=== PATIENT | male | born 1975 | race Caucasian/White ===

== ENCOUNTER 2016-11-09 21:49 | Emergency (ER) | payer OTHER, BC ==
[2016-11-09 22:13] VITALS: BP 149/81
--- NOTE | 2016-11-09 22:18 | UC ---
Head Injury HPI - HPI Summary HPI Summary: 40 yo male was in work parking lot when he slipped on ice fell striking back of head No LOC no neck pain Mild frontal YOUNG 2-3/10 nausea trouble focusing mild dizziness - History Of Current Complaint Chief Complaint: UCHeadInjury Stated Complaint: FELL @ WORK HIT HEAD Time Seen by Provider: 11/09/16 22:02 Hx Obtained From: Patient Onset/Duration: Sudden Onset, Lasting Hours Severity Currently: Mild Severity Initially: Moderate Pain Intensity: 3 Pain Scale Used: 0-10 Numeric Character: Dull Aggravating Factor(s): Nothing Alleviating Factor(s): Nothing Associated Signs And Symptoms: Positive: Nausea, Other - mild disequilibrium. Negative: Negative, LOC (Time In Secs./Mins/Hrs), LOC Duration Unknown, Confusion, Memory Loss, Seizure, Epistaxis, Dental Malocclusion, Neck Pain - Allergies/Home Medications Allergies/Adverse Reactions: Allergies Allergy/AdvReac Type Severity Reaction Status Date / Time No Known Allergies Allergy Verified 11/09/16 22:00 Home Medications: Home Medications Cholecalciferol TAB* [Vitamin D TAB*] 1,000 unit PO DAILY 11/09/16 [History Confirmed 11/09/16] Lisinopril TAB* [Prinivil TAB*] 10 mg PO DAILY 11/09/16 [History Confirmed 11/09] Omeprazole CAP* [Prilosec CAP* 20 MG] 20 mg PO DAILY 11/09/16 [History Confirmed 11/09/16] PMH/Surg Hx/FS Hx/Imm Hx Previously Healthy: Yes Cardiovascular History Of: Reports: Hypertension - Surgical History Surgical History: None - Family History Known Family History: Positive: Hypertension - Social History Alcohol Use: Rare Substance Use Type: None Smoking Status (MU): Never Smoked Tobacco Review of Systems Constitutional: Negative Skin: Negative Eyes: Negative ENT: Negative Respiratory: Negative Cardiovascular: Negative Gastrointestinal: Negative Genitourinary: Negative Motor: Negative Neurovascular: Negative Musculoskeletal: Negative Neurological: Headache Psychological: Negative All Other Systems Reviewed And Are Negative: Yes Physical Exam Triage Information Reviewed: Yes Appearance: Well-Appearing, No Pain Distress, Well-Nourished Vital Signs: Initial Vital Signs Temp 98.0 F 11/09/16 21:55 Pulse 78 11/09/16 21:55 Resp 18 01/02/17 21:55 BP 149/81 11/09/16 21:55 Pulse Ox 98 11/09/16 21:55 Eye Exam: Normal Eyes: Positive: Conjunctiva Clear, Other: - eomi/perrl ENT: Positive: Hearing grossly normal. Negative: Nasal congestion, Nasal drainage, Tonsillar exudate, Trismus, Muffled/hoarse voice Dental Exam: Normal Dental: Positive: Other: - TMJ normal/no jaw malocclusion Neck: Positive: Supple, Nontender, No Lymphadenopathy Respiratory: Positive: Lungs clear, Normal breath sounds, No respiratory distress, No accessory muscle use Cardiovascular: Positive: RRR, No Murmur Musculoskeletal: Positive: Strength Intact, ROM Intact Neurological Exam: Normal Neurological: Positive: Alert, Muscle Tone Normal, Other: - non focal neurologic exam/alert/normal gait Psychological Exam: Normal Psychological: Positive: Normal Response To Family Skin Exam: Normal Skin: Negative: rashes Head Injury Course/Dx - Differential Dx/Diagnosis Provider Diagnoses: concussion Discharge - Discharge Plan Condition: Stable Disposition: HOME Patient Education Materials: Concussion (ED) Forms: *Work Release Referrals: Loc Tuttle MD [Primary Care Provider] - Additional Instructions: mental and physical rest
== END 2016-11-09 22:19 | disposition home or self-care (01) ==
LOC: UCCORT 21:49
DX: S06.0X9A Concussion with loss of consciousness of unspecified duration, initial encounter (principal); W00.0XXA Fall on same level due to ice and snow, initial encounter; Y99.0 Civilian activity done for income or pay; R11.0 Nausea; R42 Dizziness and giddiness; I10 Essential (primary) hypertension
CPT/HCPCS: 99211; G0463

== ENCOUNTER 2016-11-14 15:37 | Emergency (ER) | payer BC, OTHER ==
[2016-11-14 15:49] VITALS: BP 125/81
--- NOTE | 2016-11-14 16:17 | UC ---
Head Injury HPI - HPI Summary HPI Summary: complaint of falling at work and hitting the back of his head after slipping on the ice- no LOC seen in urgent 11/09/16 for evaluation since incident had a intermittent headache for 2 days -was taking tylenol for pain with relief denies headache since 11/11/16 denies dizziness, memory loss, nausea and vomiting, vision disturbances denies tinnitus, fatigue, needs a note to return to work - History Of Current Complaint Chief Complaint: UCHeadInjury Stated Complaint: CONCUSSION RECHECK FOR WORK NOTE Time Seen by Provider: 11/14/16 16:02 Hx Obtained From: Patient - Allergies/Home Medications Allergies/Adverse Reactions: Allergies Allergy/AdvReac Type Severity Reaction Status Date / Time No Known Allergies Allergy Verified 11/14/16 15:50 PMH/Surg Hx/FS Hx/Imm Hx Previously Healthy: No - recent head injury Cardiovascular History Of: Reports: Hypertension - Surgical History Surgical History: None - Family History Known Family History: Positive: Hypertension Negative: Cardiac Disease, Diabetes - Social History Occupation: Employed Full-time Alcohol Use: Rare Substance Use Type: None Smoking Status (MU): Never Smoked Tobacco Review of Systems Constitutional: Negative Skin: Negative Eyes: Negative ENT: Negative Respiratory: Negative Cardiovascular: Negative Gastrointestinal: Negative Genitourinary: Negative Motor: Negative Neurovascular: Negative Musculoskeletal: Negative Neurological: Negative Psychological: Negative All Other Systems Reviewed And Are Negative: Yes Physical Exam Triage Information Reviewed: Yes Appearance: No Pain Distress, Well-Nourished, Obese Vital Signs: Initial Vital Signs Temp 97.2 F 11/14/16 15:47 Pulse 77 11/14/16 15:47 Resp 14 11/14/16 15:47 BP 125/81 11/14/16 15:47 Pulse Ox 95 11/14/16 15:47 Vital Signs Reviewed: Yes Eyes: Positive: Conjunctiva Clear ENT: Positive: Pharynx normal, TMs normal. Negative: Nasal congestion Neck: Positive: Supple, No Lymphadenopathy Respiratory: Positive: Lungs clear, Normal breath sounds, No respiratory distress Cardiovascular: Positive: RRR, No Murmur, Pulses Normal Abdomen Description: Positive: Nontender, Soft Bowel Sounds: Positive: Present Musculoskeletal: Positive: No Edema Neurological: Positive: Alert, Other: - PERRLA, EOMI intact, negative Rhomberg Psychological Exam: Normal Skin Exam: Normal Head Injury Course/Dx - Differential Dx/Diagnosis Differential Diagnosis/HQI/PQRI: Other - head injury Provider Diagnoses: head injury -resolved Discharge - Discharge Plan Condition: Stable Disposition: HOME Patient Education Materials: Head Injury (ED) Forms: *Work Release Referrals: Loc Tuttle MD [Primary Care Provider] - Additional Instructions: Your symptoms have resolved from head injury You may return to work wihtour restrictions Please review your discharge instructions. If your symptoms do not improve please call your primary care provider or return to urgent care
== END 2016-11-14 16:30 | disposition home or self-care (01) ==
LOC: UCCORT 15:37
DX: Z09 Encounter for follow-up examination after completed treatment for conditions other than malignant neoplasm (principal); S09.90XD Unspecified injury of head, subsequent encounter; W00.0XXD Fall on same level due to ice and snow, subsequent encounter; Y92.9 Unspecified place or not applicable; I10 Essential (primary) hypertension
CPT/HCPCS: 99211; G0463

== ENCOUNTER 2017-04-10 16:45 | Emergency (ER) | payer BC ==
[2017-04-10 17:51] VITALS: BP 130/84
--- NOTE | 2017-04-10 18:40 | UC ---
Skin Complaint HPI - HPI Summary HPI Summary: "Right lower extremity redness, pain, & swelling since last night. Associated w / fever & nausea." sx started yesterday as 5 small dots on right unique-medial mcghee. put HC cream on it initially w/o relief. He has h/o cellulitis in legs frequently d/t edema in legs. Denies CP/sob. no personal or FHx DVTs or PEs. He is always treated with keflex 500mgs tid x 10 days. - History of Current Complaint Chief Complaint: UCSkin Time Seen by Provider: 04/10/17 18:33 Stated Complaint: RIGHT LEG COMPLAINT - Allergy/Home Medications Allergies/Adverse Reactions: Allergies Allergy/AdvReac Type Severity Reaction Status Date / Time No Known Allergies Allergy Verified 04/10/17 17:45 Home Medications: Home Medications Ibuprofen TAB* [Motrin TAB* 800 MG] 800 mg PO Q8H PRN 04/10/17 [History Confirmed 04/10/17] Review of Systems Constitutional: Fever, Chills Skin: Negative Eyes: Negative ENT: Negative Respiratory: Negative Cardiovascular: Negative Gastrointestinal: Other - mild nausea. Genitourinary: Negative Motor: Negative Neurovascular: Negative Musculoskeletal: Negative Neurological: Negative Psychological: Negative All Other Systems Reviewed And Are Negative: Yes PMH/Surg Hx/FS Hx/Imm Hx Previously Healthy: Yes Cardiovascular History: Hypertension - Surgical History Surgical History: None - Family History Known Family History: Positive: Hypertension Negative: Cardiac Disease, Diabetes, Blood Disorder - no DVTs or PEs. - Social History Alcohol Use: Rare Substance Use Type: None Smoking Status (MU): Never Smoked Tobacco Physical Exam Triage Information Reviewed: Yes Appearance: Well-Appearing, No Pain Distress, Well-Nourished, Other: - feels cold in a warm exam room. Vital Signs: Initial Vital Signs Temp 101.4 F 04/10/17 17:47 Pulse 99 04/10/17 17:47 Resp 16 04/10/17 17:47 BP 130/84 04/10/17 17:47 Pulse Ox 100 04/10/17 17:47 Vital Signs Reviewed: Yes Eye Exam: Normal ENT Exam: Normal Dental Exam: Normal Neck exam: Normal Neck: Positive: Supple, Nontender, No Lymphadenopathy Respiratory Exam: Normal Respiratory: Positive: Lungs clear, Normal breath sounds, No respiratory distress, No accessory muscle use Cardiovascular Exam: Normal Cardiovascular: Positive: RRR, No Murmur, Pulses Normal Abdominal Exam: Normal Abdomen Description: Positive: Nontender, Soft Musculoskeletal Exam: Normal Neurological Exam: Normal Psychological Exam: Normal Skin: Positive: Other - right lower leg with anterior, medial and posterior erythema, warm to touch and tender. a few small darker red dots unique-lateral. +1 edema b/l legs. Course/Dx - Course Course Of Treatment: rocephin 1 gm IM x 1 now. start keflex 500mgs tid in 24 hrs. Declines ER for US to r/o DVT. Has h/o leg cellulitis just like this d/t leg edema. Denies h/o or FHx PE/DVTs. Agrees to go to ER if sx worsen or not better in 24 hrs. - Differential Diagnoses - Skin Complaint Differential Diagnoses: Cellulitis, Contact Dermatitis, Other - DVT - Diagnoses Provider Diagnoses: Rt lower extremity cellulitis. Discharge - Discharge Plan Condition: Stable Disposition: HOME Prescriptions: Cephalexin CAP* [Keflex CAP*] 500 mg PO TID #30 cap Referrals: Loc Tuttle MD [Primary Care Provider] - 2 Days Additional Instructions: Make sure to take a probiotic daily while on the antibiotic to prevent c diff. Start the keflex in 24 hrs. You should go to ER if symptoms worsen.
[2017-04-10] MEDS ORDERED: cefTRIAXone VIAL(*) 1,000 MG VIAL IM ONE (18:45)
[2017-04-10] MEDS ORDERED: Lidocaine 1% INJ* 10 MG/ML 30 ML SDV INJ ONE (19:05)
[2017-04-10] MEDS ORDERED: Lidocaine 1%* 5 ML VIAL INJ ONE (19:08)
== END 2017-04-10 19:43 | disposition home or self-care (01) ==
LOC: UCCORT 16:45
DX: L03.115 Cellulitis of right lower limb (principal); R50.9 Fever, unspecified; R11.0 Nausea; I10 Essential (primary) hypertension
CPT/HCPCS: 96372; 99212; G0463; J0696; J2001

== ENCOUNTER 2017-10-12 06:08 | Inpatient (IN) | payer BC ==
[~2017-10-12 06:08] MED LIST: Buffered Lidocaine 0.9% SYRIN* 5 ML/SYR SYRINGE INTRADERM ONE; Dexamethasone IV* 4 MG/ML 1 ML (4 MG) IV SLOW PU ONE; Famotidine IV* 10 MG/ML 2 ML (20 mg) IV ONE; Scopolamine 1.5 mg* PATCH TRANSDERM ONE
[2017-10-12] MEDS ORDERED: Heparin VIAL(*) 5000 UNITS/ML VIAL (FIVE THOUSAND) ONE (06:43)
[2017-10-12] MEDS ORDERED: Dexamethasone IV* 4 MG/ML 1 ML (4 MG) ONE (06:43)
[2017-10-12] MEDS ORDERED: Famotidine IV* 10 MG/ML 2 ML (20 mg) ONE (06:43)
[2017-10-12] MEDS ORDERED: Clindamycin 900 MG IVPREMIX(* 900 MG/50 ML SDV IV ONE (06:44)
[2017-10-12] MEDS ORDERED: ceFAZolin 2 GM PREMIX (*) 2 GM/50 ML BAG IVPB ONE (06:44)
[2017-10-12] MEDS ORDERED: Buffered Lidocaine 0.9% SYRIN* 5 ML/SYR SYRINGE ONE (06:44)
[2017-10-12] MEDS ORDERED: Scopolamine 1.5 mg* PATCH ONE (06:44)
[2017-10-12] MEDS ORDERED: Methylene Blue 0.5 %* 50 MG/10 ML AMP IV ONE (06:53)
[2017-10-12] MEDS ORDERED: Bupivacaine 0.5% SDV PF* 30 ML VIAL ONE (06:53)
[2017-10-12] MEDS ORDERED: ceFAZolin 1 GM ADVAN(*) 1 GM ADDV.VIAL IVPB ONE (07:18)
[2017-10-12] MEDS ORDERED: Lidocaine 2% PF * 5 ML VIAL ONE (07:36)
[2017-10-12] MEDS ORDERED: Rocuronium* 10 MG/ML VIAL ONE (07:36)
[2017-10-12] MEDS ORDERED: Propofol* 10 MG/ML 20 ML BTL IV PUSH ONE (07:36)
[2017-10-12] MEDS ORDERED: fentaNYL* 50 MCG/ML 5 ML VIAL (250 MCG VIAL) ONE (07:37)
[2017-10-12] MEDS ORDERED: Midazolam* 1 MG/ML 2 ML VIAL (2 MG) ONE (07:37)
[2017-10-12] MEDS ORDERED: Ketorolac INJ* 30 MG/ML 1 ML VIAL ONE (08:27)
[2017-10-12] MEDS ORDERED: fentaNYL* 50 MCG/ML 2 ML VIAL (100 MCG VIAL) ONE ×4 (08:43→11:37)
[2017-10-12] MEDS ORDERED: PROCHLORPERAZINE INJ 5 MG/ML 2 ML VIAL IV PRN (08:45)
[2017-10-12] MEDS ORDERED: Acetaminophen IV 1GM/100ML * 1,000 MG/100 ML VIAL IVPB ONE (08:45)
[2017-10-12] MEDS ORDERED: Labetalol IV* 5 MG/ML 20 ML VIAL ONE (08:52)
[2017-10-12] MEDS ORDERED: Ondansetron INJ* 2 MG/ML VIAL ONE (09:59)
[2017-10-12] MEDS ORDERED: Acetaminophen IV 1GM/100ML * 100 ML ONE (10:05)
--- NOTE | 2017-10-12 10:16 | PN ---
Progress Note - Progress Note Date of Service: 10/12/17 Note: Brief Operative Note: Pre and Postop Dx: morbid obesity Procedure: Laparoscopic Doni En Y gastric bypass Anesthesia: GET Surgeon: Isael Asst: CHERYL Lechuga Fluids: 1800 ml RL EBL: 20 ml Drains: none Specimen: none Findings: dictated
[2017-10-12] MEDS ORDERED: HYDROcodone/ACET. 7.5/325 LIQ* 15 ML UDC PO PRN (10:32)
[2017-10-12] MEDS ORDERED: Ondansetron INJ* 2 MG/ML VIAL IV PRN (10:32)
[2017-10-12] MEDS ORDERED: Acetaminophen ADULT LIQ* 650 MG/20.3 ML UDC PO PRN (10:32)
[2017-10-12] MEDS ORDERED: diPHENhydraMINE IV* 50 MG/ML 1 ml VIAL (BENADRYL) SLOW PUSH PRN (10:32)
[2017-10-12] MEDS: fentaNYL* 50 MCG/ML 2 ML VIAL (100 MCG VIAL) IV PRN ×5 (10:57→11:41)
[2017-10-12] MEDS ORDERED: HYDROmorphone INJ* 1 MG/ML CARPUJECT SYRINGE ONE ×2 (11:21→19:25)
[2017-10-12] MEDS ORDERED: Morphine INJ* 10 MG/ML 1 ML CARPUJECT ONE (11:37)
[2017-10-12] MEDS: Morphine INJ* 2 MG/ML 1 ML CARPUJECT IV PRN ×2 (11:39→11:48)
[2017-10-12] MEDS: Heparin VIAL(*) 5000 UNITS/ML VIAL (FIVE THOUSAND) SUBCUT SCH ×2 (14:46→22:21)
[2017-10-12] MEDS: Ketorolac INJ* 30 MG/ML 1 ML VIAL IV PRN (17:50)
[2017-10-12] MEDS ORDERED: HYDROmorphone INJ* 2 MG/ML CARPUJECT SYRINGE IV PRN ×2 (19:37→22:33)
[2017-10-12] MEDS: Famotidine IV* 10 MG/ML 2 ML (20 mg) IV SLOW PU SCH (22:14)
--- NOTE | 2017-10-13 03:57 | OP ---
CC: Loc Tuttle MD * DATE OF OPERATION: 10/12/17 - ROOM #351 DATE OF : 71 SURGEON: Celso Kirkland MD UNIT AID: CHERYL Guzman ANESTHESIOLOGIST: Dr. Danilo Crain. ANESTHESIA: General endotracheal. PRE-OP DIAGNOSIS: Morbid obesity. POST-OP DIAGNOSIS: Morbid obesity. OPERATIVE PROCEDURE: Laparoscopic Angelica-en-Y gastric bypass. ESTIMATED BLOOD LOSS: 20 mL. IV FLUIDS: 1.8 L crystalloid. SPECIMENS: None. DRAINS: None. COMPLICATIONS: None. COUNTS: Needle and sponge counts correct. DESCRIPTION OF PROCEDURE: The patient was brought to the operating room and placed on the table supine. Sequential compression devices were placed on both lower extremities. General anesthesia was administered. The patient had a Eaton catheter placed. He was positioned and padded approximately. He was prepped and draped in the usual sterile fashion. He received appropriate antibiotics and a time-out was performed. Local anesthetic was infiltrated into the skin and soft tissue prior to making each incision. Entry into the abdomen was through a left upper quadrant incision accommodating a 12-mm optical trocar. After accessing the peritoneal cavity, carbon dioxide was insufflated to a pressure of 15 mmHg. Under direct visualization, 12 mm bladeless trocars were placed in the supraumbilical midline and in the right upper quadrant. 5-mm bladeless trocars were placed in the right upper quadrant medially and left upper quadrant laterally. A Chuckie liver retractor was placed percutaneously in the subxiphoid position and used to elevate the left lobe of the liver. Gastric anatomy appeared normal. Periosteally, gastric cardia was mobilized away from the left kailee of the diaphragm using a blunt technique. Then perigastric dissection was undertaken on the lesser curvature crossing vein. A transverse firing was undertaken with the EndoGIA stapler with a kenny cartridge and then additional firings were undertaken heading towards the angle of His, also with kenny MANGO stapler cartridges. The gastric pouch was thus created, size approximately 15 to 30 mL volume. Staple lines were noted to be intact and hemostatic. Next, the omentum was retracted superiorly and divided down the midline with a LigaSure. The transverse colon was retracted superiorly and the Ligament of Treitz was identified. The jejunum was measured out 40 to 50 cm. The loop was then tacked to the left lateral staple line on the gastric pouch with interrupted 2-0 silks. The gastrojejunal anastomosis was then performed antecolic antigastric with a linear 30 mm EndoGIA stapler in a [id number] fashion. The common enterotomy was run close with 3-0 PDS. The loop was then divided to the left of the anastomosis with an EndoGIA stapler with a kenny cartridge. The gastrojejunal anastomosis thus completed was tested with methylene blue dye solution instilled through the orogastric tube. The testing revealed there was no leak. Next, the angelica limb was measured out 75 cm and at this point, a functional end-to-side jejunojejunostomy was created with the EndoGIA stapler with a 60 mm kenny cartridge. The common enterotomy was then closed with 3-0 PDS as well. Anti-obstruction sutures of 3-0 silk were placed proximally and distally at the anastomosis. The mesenteric defect was closed with running 3-0 silk. Inspection then revealed hemostasis to be excellent and the orientation of the Angelica limb was assured. The ports were then removed under direct visualization. Carbon dioxide was released. The skin was closed with abdon. Dressings were applied. The patient tolerated the procedure well , was extubated and transferred to recovery room in stable condition. [id number]/[facility] #: [id number] YASMEEN
[2017-10-13] MEDS: Ketorolac INJ* 30 MG/ML 1 ML VIAL IV PRN (06:13)
[2017-10-13] MEDS: Heparin VIAL(*) 5000 UNITS/ML VIAL (FIVE THOUSAND) SUBCUT SCH ×3 (06:19→21:33)
[2017-10-13] MEDS: Fluticasone NASAL SPRAY 50MCG* 16 gm SPRAY BTL BOTH NARES SCH (08:30)
[2017-10-13] MEDS: Miconazole TOPICAL CREAM 2%* 30 GM TOPICAL SCH ×2 (08:30→21:32)
[2017-10-13] MEDS: Famotidine IV* 10 MG/ML 2 ML (20 mg) IV SLOW PU SCH ×2 (08:31→21:31)
--- NOTE | 2017-10-13 08:36 | SURGPN ---
Subjective - Introduction -: Admitted on: 10/12/17 Patient's surgical date: 10/12/17 Procedure completed: Laparoscopic Doni-en-Y gastric bypass - Medications -: Active Medications Generic Name Dose Route Start Last Admin Trade Name Freq PRN Reason Stop Dose Admin Acetaminophen 650 mg 10/12/17 10:32 Tylenol Adult Liq* PO Q6H PRN Temp > 101 F Or Mild Pain Hydrocodone Bitart/Acetaminophen 15 ml 10/12/17 10:32 Nortab 7.5/325 Liq* PO Q6H PRN PAIN Diphenhydramine HCl 25 mg 10/12/17 10:32 Benadryl Iv* SLOW PUSH Q6H PRN ITCHING Famotidine 20 mg 10/12/17 21:00 10/13/17 08:31 Pepcid Iv* IV SLOW PU 20 mg BID MAIN Administration Fluticasone Propionate 2 spray 10/13/17 09:00 10/13/17 08:30 Flonase Nasal Tanner 50mcg* BOTH NARES 2 spray QAM MAIN Administration Heparin Sodium (Porcine) 5,000 units 10/12/17 14:00 10/13/17 06:19 Heparin Vial(*) SUBCUT 5,000 units Q8HR MAIN Administration Hydromorphone HCl 0.5 mg 10/12/17 22:33 Dilaudid Inj* IV Q3H PRN PAIN Potassium Chloride/Dextrose 1,000 mls @ 125 mls/hr 10/13/17 10:35 D5w 1/2 Ns Kcl 20 Meq 1000 Ml* IV PER RATE MAIN Lactated Ringer's 1,000 mls @ 150 mls/hr 10/12/17 11:00 10/13/17 08:22 Lactated Ringers 1000 Ml Bag* IV 10/13/17 10:35 150 mls/hr PER RATE MAIN Administration Ketorolac Tromethamine 30 mg 10/12/17 10:32 10/13/17 06:13 Toradol Inj* IV 10/14/17 10:36 30 mg Q6H PRN Administration PAIN Miconazole Nitrate 1 applic 10/13/17 09:00 10/13/17 08:30 Monistat 2%* TOPICAL 1 applic BID MAIN Administration Ondansetron HCl 4 mg 10/12/17 10:32 Zofran Inj* IV Q6H PRN NAUSEA/VOMITING Pharmacy Profile Note 1 note 10/15/17 06:00 Scopolamine Patch Remove* PATCH OFF 10/15/17 06:01 ONCE ONE - Comments Comments: Patient seen and examined at bedside. Reports doing very well overall. Minimal incisional pain, denies nausea or vomiting. Ambulatory down kenyon. Denies any headache or dizziness. Objective - Objective -: Awake and alert, walking in his room, comfortable and in NAD Vitals reviewed, slight bradycardia with stable B/P, no orthostatic hypotension , afebrile - Intake and Output -: Intake & Output 10/11/17 10/12/17 10/13/17 10/14/17 06:59 06:59 06:59 06:59 Intake Total 4516 1028 Output Total 3075 Balance 1441 1028 Weight 318 lb 6.4 oz Intake: IV Fluids 4516 1028 3GM CEFAZOLIN 100 CLINDAMYCIN 900 MG 50 LR 4366 1028 Oral 0 Output: Urine 2025 Eaton 1025 Estimated Blood Loss 25 Other: # Bowel Movements 0 Surgical Physical Exam - Comments -: Lungs CTA bilat. Heart RRR, no murmurs Abdomen soft, NT, ND. Incisions clean, dry and intact, covered with dressings. No guarding, rigidity or rebound. Ext. without edema Assessment and Plan - Assessment -: POD#1, s/p laparoscopic RYGB, doing very well - Plan Additional Comments: Uma galeano d/c'ed last night Start bariatrics clear liquids Ambulate as tolerated GI and DVT prophylaxis Likely home in AM 10/14
[2017-10-13] MEDS: D5W 1/2 NS KCl 20 Meq 1000 ML* 1,000 ML IV SCH ×2 (15:03→22:58)
[2017-10-14] MEDS: Heparin VIAL(*) 5000 UNITS/ML VIAL (FIVE THOUSAND) SUBCUT SCH (05:42)
[2017-10-14] MEDS: D5W 1/2 NS KCl 20 Meq 1000 ML* 1,000 ML IV SCH (07:06)
[2017-10-14] MEDS: Miconazole TOPICAL CREAM 2%* 30 GM TOPICAL SCH (07:11)
[2017-10-14] MEDS: Fluticasone NASAL SPRAY 50MCG* 16 gm SPRAY BTL BOTH NARES SCH (09:01)
[2017-10-14] MEDS: Famotidine IV* 10 MG/ML 2 ML (20 mg) IV SLOW PU SCH (09:06)
--- NOTE | 2017-10-14 09:43 | PN ---
Progress Note - Progress Note Date of Service: 10/14/17 Note: Surgery Progress: See full Discharge Summary. Seen by Dr. Kirkland this a.m. Doing well. Home today.
[2017-10-14 10:04] VITALS: BP 140/90
[2017-10-15] MEDS ORDERED: Scopolamine PATCH Remove* 1 NOTE MISC PATCH OFF ONE (06:00)
--- NOTE | 2017-10-16 01:10 | DS ---
CC: Dr. Tuttle, [facility] * DISCHARGE SUMMARY: DATE OF ADMISSION: 10/12/17 DATE OF DISCHARGE: 10/14/17 ATTENDING SURGEON: Dr. Celso Kirkland * (DICTATED BY CHERYL FRANCISCO) HOSPITAL COURSE: Please refer to admission history and physical for admission details. The patient was taken to the operating room on 10/12/17, at which time , he underwent laparoscopic Doni-en-Y gastric bypass with Dr. Kirkland. See separate operative report. He has done well postoperatively with gradual improvement in pain and tolerance of a bariatric clear liquid. PHYSICAL EXAMINATION: As of the morning of discharge, temperature 97.8, blood pressure 140/90, pulse 48, respirations 16, room air saturation 98%. Heart: Regular rate and rhythm. Lungs: Clear to auscultation. Abdomen: Laparoscopic incision sites healing well without evidence of infection. Juany intact. Abdomen: Soft with minimal incisional tenderness. IMPRESSION: Status post Doni-en-Y gastric bypass, doing well. PLAN: Home today. The patient was seen this morning by Dr. Kirkland. I have reviewed with him his postoperative instructions including wound care, activity , and diet. He does have a followup scheduled next week at the [facility] for metabolic and bariatric surgery. CHERYL FRANCISCO [id number]/[facility] #: [id number] MTDD
== END 2017-10-14 10:40 | disposition home or self-care (01) | DRG 403 ==
LOC: AA 06:08 → SSU 12:20
PROVIDERS: ADMIT Surgery; ATTEND Surgery
PROC: 0D164ZA Bypass Stomach to Jejunum, Percutaneous Endoscopic Approach (ICD-10-PCS; principal; 2017-10-12 07:45)
DX: E66.01 Morbid (severe) obesity due to excess calories (principal); E55.9 Vitamin D deficiency, unspecified; I10 Essential (primary) hypertension; G47.33 Obstructive sleep apnea (adult) (pediatric); K21.9 Gastro-esophageal reflux disease without esophagitis; K42.9 Umbilical hernia without obstruction or gangrene; Z68.42 Body mass index [BMI] 45.0-49.9, adult; Z72.89 Other problems related to lifestyle
CPT/HCPCS: 43644; 94760; A9270-GY; C1776; J0690; J1100; J1170; J1644; J1885; J2250; J2270; J2405; J2704; J3010